=== PATIENT | female | born 1990 | race Caucasian/White ===

== ENCOUNTER → 2023-09-23 08:39 | Outpatient (REF) | payer BC, SELFPAY | LOC: PNTC 08:39 | PROVIDERS: ATTENDING PHYSICIAN Obstetrics & Gynecology | DX: O09.529 Supervision of elderly multigravida, unspecified trimester (principal) | CPT/HCPCS: 76801; 76813 ==

== ENCOUNTER → 2024-03-01 09:29 | Outpatient (REF) | payer BC, SELFPAY | LOC: PNTC 09:29 | PROVIDERS: ATTENDING PHYSICIAN Obstetrics & Gynecology | DX: O32.1XX0 Maternal care for breech presentation, not applicable or unspecified (principal) | CPT/HCPCS: 76815 ==

== ENCOUNTER → 2024-03-06 07:25 | Outpatient (REF) | payer BC, SELFPAY | LOC: PNTC 07:25 | PROVIDERS: ATTENDING PHYSICIAN Obstetrics & Gynecology | DX: O36.5930 Maternal care for other known or suspected poor fetal growth, third trimester, not applicable or unspecified (principal) | CPT/HCPCS: 76816 ==

== ENCOUNTER 2024-03-29 20:55 | Inpatient (IN) | payer BC, SELFPAY ==
[2024-03-29 21:03] VITALS: BMI 26.2
[2024-03-29 21:12] VITALS: BP 126/82
[2024-03-29 21:49] LABS: % Basophils 0.5 % (0-2); % Eosinophils 2.3 % (0-6); % Immature Granulocytes 0.7 % (0-0.5); % Lymphocytes 17.7 % (20.5-51.1); % Monocytes 6.8 % (1.7-9.3); Absolute Basophils 0.1 10^3/uL (0-0.2); Absolute Eosinophils 0.3 10^3/uL (0-0.7); Absolute Immature Granulocytes 0.1 10^3/uL (0-0.05); Absolute Lymphocytes 2.6 10^3/uL (1.2-3.4); Absolute Neutrophils 10.6 10^3/uL (1.4-6.5); Hematocrit 35.2 % (37.0-47.0); Hemoglobin 12.6 g/dL (12.0-16.0); Mean Corp Hgb Conc. 35.8 g/dL (33.0-37.0); Mean Corpuscular Hgb 33.2 pg (27.0-31.0); Mean Corpuscular Volume 92.6 fL (81.0-99.0); Mean Platelet Volume 11.1 fL (7.4-10.4); Nucleated Red Blood Cells % 0 %; Platelet Count 155 10^3/uL (130-400); Red Cell Dist. Width 12.9 % (11.5-14.5); White Blood Cell Count 14.8 10^3/uL (4.8-10.8)
[2024-03-29] MEDS: CYTOTEC 25 MICROGRAM VAG (23:19)
[2024-03-29] MEDS: TUMS CHEWABLE TABLET 400 MG PO (23:24)
[2024-03-30] MEDS: LR 1000 IV (02:21)
[2024-03-30] MEDS: STADOL 1 MG IV (02:21)
[2024-03-30] MEDS: FENTANYL/BUPIVACAINE 100 EPIDURAL (04:42)
[2024-03-30] MEDS: SUBLIMAZE 100 MCG EPIDURAL (04:42)
[2024-03-30] MEDS: XYLOCAINE-MPF 1% VIAL 30 ML INFIL (05:46)
[2024-03-30] MEDS: PITOCIN 30 UNITS/NSS 500 ML IV (05:46)
[2024-03-30] MEDS: ANCEF 10 IV (06:48)
[2024-03-30] MEDS: MOTRIN 600 MG PO ×3 (07:20→21:23)
[2024-03-30] MEDS: TYLENOL 650 MG PO ×2 (13:44→17:58)
[2024-03-30] MEDS: PRENATAL PLUS PO (13:44)
[2024-03-31] MEDS: MOTRIN 600 MG PO ×2 (03:28→09:28)
[2024-03-31] MEDS: SENOKOT-S 1 TABLET PO (03:42)
[2024-03-31] MEDS: PRENATAL PLUS 1 TABLET PO (09:28)
[2024-03-31 10:49] LABS: Syphilis/T. pallidum Ab Reflex Negative (Negative)
== END 2024-03-31 12:15 | disposition home or self-care (01) | DRG 807 ==
LOC: LDRP 20:55
PROVIDERS: ADMITTING PHYSICIAN Obstetrics & Gynecology; FAMILY PHYSICIAN Physician Assistant
PROC: 10E0XZZ Delivery of Products of Conception, External Approach (ICD-10-PCS; 2024-03-30)
PROC: 10D17Z9 Manual Extraction of Products of Conception, Retained, Via Natural or Artificial Opening (ICD-10-PCS; 2024-03-30)
PROC: 0KQM0ZZ Repair Perineum Muscle, Open Approach (ICD-10-PCS; 2024-03-30)
PROC: 3E0P7VZ Introduction of Hormone into Female Reproductive, Via Natural or Artificial Opening (ICD-10-PCS; 2024-03-30)
DX: O48.0 Post-term pregnancy (principal); Z37.0 Single live birth; Z3A.40 40 weeks gestation of pregnancy; O70.1 Second degree perineal laceration during delivery; O73.1 Retained portions of placenta and membranes, without hemorrhage; O99.344 Other mental disorders complicating childbirth; F90.9 Attention-deficit hyperactivity disorder, unspecified type
CPT/HCPCS: 88307; 36415; 85014; 85018; 85025; 86780; 86850; 86900; 86901